=== PATIENT | female | born 1945 | race Caucasian/White ===

== ENCOUNTER 2016-12-25 10:31 | Inpatient (IN) | payer MEDICARE, BC ==
[~2016-12-25] VITALS: Ht 172.7 cm; Wt 52.2 kg
[2016-12-25] VITALS (28 sets, daily range): BP systolic 114–170; BP diastolic 56–90
--- NOTE | 2016-12-25 10:31 | NUR ---
BIB RA 102 FROM HOME,ALTERED,BLOOD SUGAR 123, THINKS SHE TOOK "A BUNCH OF TEMAZEPAM"
--- NOTE | 2016-12-25 10:45 | NUR ---
7.5 CM 20 AT THE LIP
[2016-12-25] MEDS ORDERED: IV NS 0.9% 1,000 ML BAG IV ONE (11:00)
[2016-12-25] MEDS ORDERED: SUCCINYLCHOLINE CHLORIDE 20 MG/ML VIAL IV ONE ×2 (11:00→14:56)
[2016-12-25] MEDS ORDERED: PROPOFOL 100 ML IV PRN (11:00)
--- NOTE | 2016-12-25 11:05 | NUR ---
PT TAKEN TO CT VIA ACLS PROTOCOL
[2016-12-25] MEDS ORDERED: DIVA125T3 PO (11:16)
[2016-12-25] MEDS ORDERED: AMLO5TAB2 PO (11:16)
[2016-12-25] MEDS ORDERED: SERT100T PO (11:16)
[2016-12-25] MEDS ORDERED: OMEP20TA68 PO (11:16)
[2016-12-25] MEDS ORDERED: LOSA50TA21 PO (11:16)
[2016-12-25] MEDS ORDERED: TRAZ-147 PO (11:16)
[2016-12-25] MEDS ORDERED: RIZA10TA27 PO (11:16)
[2016-12-25] MEDS ORDERED: LENA20CA PO (11:16)
[2016-12-25] MEDS ORDERED: HYDR-548 PO (11:16)
[2016-12-25] MEDS ORDERED: ACYC400T PO (11:16)
[2016-12-25] MEDS ORDERED: ONDA8TAB6 PO (11:16)
[2016-12-25] MEDS ORDERED: ASPI81TA2 PO (11:16)
[2016-12-25] MEDS ORDERED: LAMO100T PO (11:16)
[2016-12-25] MEDS ORDERED: TEMA30CA PO (11:16)
--- NOTE | 2016-12-25 11:16 | NUR ---
EGG BREAKER AT BEDSIDE
--- NOTE | 2016-12-25 11:24 | NUR ---
RT PT INTUBATED 7.5 ETT TUBE 20CM AT LIP. PER MD ORDER SETTINGS PRESCRIBED AC 14 500 +5 50% ALARMS ARE ON AND AUDIBLE. VENT PLUGGED INTO RED OUTLET. AMBU BAG AT BEDSIDE. NO DISTRESS NOTED WILL CONTINUE TO MONITOR Addendum: 12/25/16 at 1127 by JOEY DILLON RT Amended: Links added.
[2016-12-25 11:38] LABS: CALCIUM, SERUM 9.6 mg/dL (8.5-10.1); CARBON DIOXIDE 29 mmol/L (21-32); CHLORIDE 104 mmol/L (98-107); CREATININE 0.6 mg/dL (0.6-1.3); GLUCOSE 131 mg/dL (74-106); POTASSIUM 3.6 mmol/L (3.5-5.1); SODIUM SERUM 141 mmol/L (136-145); UREA NITROGEN, BLOOD 19 mg/dL (7-18)
--- NOTE | 2016-12-25 11:39 | NUR ---
AC 14 TV 500 FIO2 50 % PEEP 5
[2016-12-25 11:43] LABS: BASOPHILS % (AUTO) 0.3 % (0.0-2.0); EOSINOPHILS # (AUTO) 0.1 /CMM (0.0-0.7); EOSINOPHILS % (AUTO) 0.7 % (0.0-6.0); HEMATOCRIT 39 % (33-45); HEMOGLOBIN 12.6 g/dL (11.5-14.8); LYMPHOCYTES # (AUTO) 0.8 /CMM (0.8-4.8); LYMPHOCYTES % (AUTO) 10.6 % (20.0-44.0); MEAN CORPUSCULAR HEMOGLOBIN 28 PG (26.0-33.0); MEAN CORPUSCULAR HGB CONC 33 g/dl (31.0-36.0); MEAN CORPUSCULAR VOLUME 86 fL (82-100); MONOCYTES # (AUTO) 0.5 /CMM (0.1-1.30); MONOCYTES % (AUTO) 7.1 % (2.0-12.0); NEUTROPHILS # (AUTO) 5.8 /CMM (1.8-8.9); NEUTROPHILS % (AUTO) 81.3 % (43.0-81.0); PLATELET COUNT (AUTO) 225 /CMM (150-450); RDW COEFFICIENT OF VARIATION 17.3 (11.5-15.0); RED BLOOD CELL COUNT(AUTO) 4.48 MIL/uL (4.0-5.2); WHITE BLOOD COUNT (AUTO) 7.2 K/uL (4.3-11.0)
[2016-12-25 11:44] LABS: ACETAMINOPHEN 0 ug/ml (10-30); ALANINE AMINOTRANSFERASE 15 U/L (12-78); ALBUMIN 3.5 g/dL (3.4-5.0); ALCOHOL, BLOOD < 3 mg/dL (0-0); ALKALINE PHOSPHATASE 46 U/L (46-116); ASPARTATE AMINOTRANSFERASE 9 U/L (15-37); BILIRUBIN,DIRECT 0.1 mg/dL (0.0-0.2); BILIRUBIN,TOTAL 0.5 mg/dL (0.2-1.0); SALICYLATE 0.9 mg/dL (2.8-20.0); TOTAL PROTEIN, SERUM 7.1 g/dL (6.4-8.2)
[2016-12-25 11:46] LABS: TROPONIN I < 0.017 ng/mL (0.00-0.056)
[2016-12-25 11:47] LABS: INR 0.95 (0.87-1.13); PROTHROMBIN TIME 9.9 SECS (9.5-12.7)
[2016-12-25 12:17] LABS: ABG BASE EXCESS -0.1 mmol/L; ABG OXYGEN SATURATION 98.7 % (92.0-98.5); ABG PCO2 36.8 mmHg (35.0-45.0); ABG PH 7.431 (7.350-7.450); ABG PO2 210.2 mmHg (75.0-100.0); AaDO2 104.9 mmHg; COHb 0.6 % (0.5-1.5); MetHb 0.3 % (0.0-1.5); O2Hb 97.8 % (94.0-97.0); PEEP,BG 5 cm H2O; SITE, ABG Left Brachial; VT, ABG 500 mL
--- NOTE | 2016-12-25 12:22 | NUR ---
GAVE REPORT TO [facility] ICU ROOM 253 DR GAONA ADMITTING BENZO OD DX. TRANSFER VIA ACLS PROTOCOL
[2016-12-25 12:35] LABS: APPEARANCE,URINE Clear (CLEAR); BILIRUBIN,URINE SMALL (NEGATIVE); BLOOD, URINE Trace-intact Ery/uL (NEGATIVE); COLOR,URINE Yellow (YELLOW); KETONES,URINE 80 (NEGATIVE); LEUKOCYTE ESTERASE ,URINE Negative (NEGATIVE); NITRITE, URINE Negative (NEGATIVE); PROTEIN,URINE 30 mg/dl (NEGATIVE); UGLUCOSE Negative (NEGATIVE); UROBILINOGEN,URINE 0.2 EU/dL (0.2)
[2016-12-25 12:40] LABS: BACTERIA,URINE Few /HPF (None Seen); SQUAMOUS EPITHELIAL CELL,UR Few /HPF (None Seen)
[2016-12-25] MEDS ORDERED: ONDANSETRON HCL/PF 4 MG/2 ML VIAL IVP PRN (13:00)
[2016-12-25] MEDS ORDERED: ALBUTEROL FS 2.5 MG/3 ML VIAL.NEB NEB PRN (13:00)
[2016-12-25] MEDS ORDERED: NORMAL SALINE FLUSH 10 ML SYR IV PRN (13:00)
[2016-12-25] MEDS ORDERED: NORMAL SALINE FLUSH 10 ML SYR IV SCH (13:00)
[2016-12-25] MEDS ORDERED: ACETAMINOPHEN 325 MG TABLET PO PRN (13:00)
--- NOTE | 2016-12-25 13:00 | NUR ---
RN INITIAL NOTES RECEIVED PT FORM ER VIA NAWAF. PT INTUBATED. ON [facility] VENT WITH FF SETTINGS:AC14, TV500, EN4702%, PEEP+5. NO RESPIRATORY DISTRESS NOTED. NO SOB NOTED. NO SIGNS OF PAIN NOTED. PT SEDATED. ON PROPOFOL AT 10MCG/KG/MIN. OG IN PLACE. PLACEMENT VERIFIED BY [address] RNS[address] IV LINES IN PLACE. FC IN PLACE. NO HEMATURIA NOTED. DR. GAONA AWARE OF ADMISSION. AWAITING FOR ADMISSION ORDERS. PT CONNECTED TO MONITOR. JAMEL () AT BEDSIDE. WILL CONTINUE TO MONITOR.
[2016-12-25] MEDS: ACYCLOVIR 200 MG CAPSULE PO SCH ×2 (14:27→16:32)
[2016-12-25] MEDS ORDERED: Z GUARD REMEDY 2 OZ OINT TP PRN (15:00)
--- NOTE | 2016-12-25 15:00 | NUR ---
RN NOTES SEEN AND EXAMINED BY DR. GAONA. AWARE OF LAB VALUES AND IMAGING STUDIES. ADMISSION ORDERS MADE. MD SPOKE WITH JAMEL () OVER THE PHONE AND DISCUSSED PLAN OF CARE. WILL CONTINUE TO MONITOR
[2016-12-25] MEDS: PROPOFOL 100 ML IV PRN ×2 (15:49→18:20)
--- NOTE | 2016-12-25 17:15 | NUR ---
PATIENT RECEIVED FROM ER ORALLY INTUBATED WITH 7.5 ETT SECURED AT 20 CM MID LIP LINE ON PB 840 VENT. SUCTIONED AND LAVAGED SMALL AMOUNT OF THICK RAM/BLOODY SECRETIONS. BILATERAL BS NOTED. ALARMS VERIFIED AND AUDIBLE. VENT PLUGGED INTO RED OUTLET. AMBU BAG AT [facility].
--- NOTE | 2016-12-25 18:45 | NUR ---
RN CLOSING NOTES PT REMAINS INTUBATED, ON VENT. NO RESPIRATORY DISTRESS NOTED. PT SEDATED. ON DIPRIVAN, TITRATED ACCORDINGLY. NO SIGNS OF PAIN NOTED. HOB ELEVATED IV LINES IN PLACE. FC IN PLACE. KEPT COMFORTABLE. REPOSITIONED Q2. BLE ELEVATED. WILL ENDORSE FOR CONTINUITY OF CARE.
--- NOTE | 2016-12-25 19:25 | NUR ---
RN INITIAL NOTES RECEIVED THE PATIENT SEDATED ON BED, ON DIPRIVAN @ 40MCG/LG/MIN. INTUBATED AND ON VENT, SETTINGS AC 14, TV 500, 40% FIO2, PEEP5, ETT 7.5/20@LIP, SATURATING WELL, NO S/S OF RESP DISTRESS. CURRENTLY SB/SR ON THE MONITOR, HR 50-60'S. OGT IS CLAMPED. GALVAN CATH INTACT. LEFT FOREARM 20G AND RIGHT HAND 18G BOTH FLUSHED AND PATENT, NO S/S OF INFILTRATION/INFECTION, DRESSINGS CDI. BED LOW AND LOCKED, SIDERAILS UP. WILL MONITOR
--- NOTE | 2016-12-25 21:37 | NUR ---
PT RECEIVED ORALLY INTUBATED WITH 7.5 ETT AT 20CM AT THE LIP. NOTIFIED RN AND CHARGE ABOUT THE PLACEMENT OF ETT (6.8 ABOVE THE SAEED). EQUAL BREATH SOUNDS. O2 SAT 100%. PT GETTING VOLUMES. NO RESP DISTRESS NOTED. WILL CONTINUE TO MONITOR. Addendum: 12/25/16 at 2141 by DESIRAE THOMAS RT Amended: Links added.
--- NOTE | 2016-12-25 22:14 | NUR ---
PER DR. LOPEZ ETT NEEDS TO BE ADJUSTED. ETT ADVANCED TO 22CM FROM 20CM. RN NOTIFIED.
--- NOTE | 2016-12-25 22:16 | NUR ---
RN NOTES CALLED DR LOPEZ TO INFORM HIM THAT ETT IS 6.8CM ABOVE THE SAEED. PER MD, ADVANCE ETT BY 2CM. ETT IS ADVANCED FROM 20CM TO 22CM. CONFIRMED VIA CHEST XR.
[2016-12-26] VITALS (28 sets, daily range): BP systolic 108–185; BP diastolic 51–95
[2016-12-26] MEDS: PROPOFOL 100 ML IV PRN ×2 (00:16→05:16)
--- NOTE | 2016-12-26 04:05 | NUR ---
RN NOTES REPORT GIVEN TO MANHOLE STRIPPER KIMBER FOR PATIENT'S RICKY
[2016-12-26 04:27] LABS: BASOPHILS % (AUTO) 0.5 % (0.0-2.0); EOSINOPHILS # (AUTO) 0.2 /CMM (0.0-0.7); EOSINOPHILS % (AUTO) 2.3 % (0.0-6.0); HEMATOCRIT 32 % (33-45); HEMOGLOBIN 10.4 g/dL (11.5-14.8); LYMPHOCYTES % (AUTO) 14.2 % (20.0-44.0); MEAN CORPUSCULAR HEMOGLOBIN 28 PG (26.0-33.0); MEAN CORPUSCULAR HGB CONC 33 g/dl (31.0-36.0); MEAN CORPUSCULAR VOLUME 85 fL (82-100); MONOCYTES % (AUTO) 14.2 % (2.0-12.0); NEUTROPHILS # (AUTO) 5.1 /CMM (1.8-8.9); NEUTROPHILS % (AUTO) 68.8 % (43.0-81.0); PLATELET COUNT (AUTO) 191 /CMM (150-450); RDW COEFFICIENT OF VARIATION 17.5 (11.5-15.0); RED BLOOD CELL COUNT(AUTO) 3.71 MIL/uL (4.0-5.2); WHITE BLOOD COUNT (AUTO) 7.4 K/uL (4.3-11.0)
[2016-12-26 04:49] LABS: ALANINE AMINOTRANSFERASE 16 U/L (12-78); ALBUMIN 2.7 g/dL (3.4-5.0); ALKALINE PHOSPHATASE 35 U/L (46-116); ASPARTATE AMINOTRANSFERASE 8 U/L (15-37); BILIRUBIN,TOTAL 0.6 mg/dL (0.2-1.0); CALCIUM, SERUM 8.6 mg/dL (8.5-10.1); CARBON DIOXIDE 29 mmol/L (21-32); CHLORIDE 107 mmol/L (98-107); CREATININE 0.3 mg/dL (0.6-1.3); GLUCOSE 89 mg/dL (74-106); MAGNESIUM 1.9 mg/dL (1.8-2.4); PHOSPHORUS 3.3 mg/dL (2.5-4.9); SODIUM SERUM 142 mmol/L (136-145); TOTAL PROTEIN, SERUM 5.6 g/dL (6.4-8.2); UREA NITROGEN, BLOOD 17 mg/dL (7-18)
[2016-12-26 04:58] LABS: POTASSIUM 2.8 mmol/L (3.5-5.1)
--- NOTE | 2016-12-26 07:10 | NUR ---
RN INITIAL NOTES RECEIVED PT INTUBATED, ON VENT. NO RESPIRATORY DISTRESS NOTED. NO SOB NOTED. NO SIGNS OF PAIN NOTED. PT SEDATED, ON DIPRIVAN AT 50MCG/KG/MIN. OG IN PLACE. PT NPO. IV LINES IN PLACE. FC IN PLACE. BLE ELEVATED. PT COMFORTABLE. WILL MONITOR.
[2016-12-26] MEDS ORDERED: DC PROPOFOL WHEN EXTUBATED XX PRN (08:00)
--- NOTE | 2016-12-26 08:24 | NUR ---
WOUND CARE CONSULT: PT PRESENTS WITH IMMOBILITY AND INCONTINENCE OF STOOL. PT ON FIRST STEP MATTRESS. ALL SKIN PROTECTION MEASURES IN PLACE AND DISCUSSED WITH NURSING STAFF. PT CURRENTLY INTUBATED. WILL SEE PRN. PT TO BE TURNED AND REPOSITIONED EVERY 2 HRS PT CONDITION PERMITS, HEELS FLOATED. IN AGREEMENT WITH PLAN OF CARE. Addendum: 12/26/16 at 0826 by GIANLUCA ROONEY WNDNU Amended: Links added.
[2016-12-26] MEDS: PANTOPRAZOLE 40 MG VIAL IV SCH (08:27)
[2016-12-26] MEDS: LamoTRIgine 100 MG TABLET PO SCH (08:27)
[2016-12-26] MEDS: ACYCLOVIR 200 MG CAPSULE PO SCH ×2 (08:27→16:23)
[2016-12-26] MEDS: ASPIRIN 81 MG TAB.CHEW PO SCH (08:27)
[2016-12-26] MEDS ORDERED: POTASSIUM CHLORIDE 20 MEQ POWDER PACKET GT ONE ×2 (08:30→12:00)
[2016-12-26 09:22] LABS: ABG BASE EXCESS -1.4 mmol/L; ABG OXYGEN SATURATION 98.2 % (92.0-98.5); ABG PCO2 38.5 mmHg (35.0-45.0); ABG PH 7.397 (7.350-7.450); AaDO2 100.9 mmHg; COHb 0.4 % (0.5-1.5); MetHb 0.4 % (0.0-1.5); O2Hb 97.4 % (94.0-97.0); SITE, ABG Right Radial; VENT MODE, BG PS 14 40%
[2016-12-26] MEDS ORDERED: LORAZEPAM 1 MG TABLET PO PRN (09:30)
[2016-12-26] MEDS ORDERED: HYDROCODONE/APAP 5/325MG 1 EACH TABLET PO PRN (09:30)
--- NOTE | 2016-12-26 09:30 | NUR ---
PER DR BENAVIDES ORDER PATIENT EXTUBATED AND PLACED ON 2L N/C. EHSAN DICKENS AT BEDSIDE
--- NOTE | 2016-12-26 10:00 | NUR ---
RN NOTES 899 SEEN [address] EXAMINED BY DR. WRAY. PT AWAKE,AGITATED. ON SEDATION VACATION. AT BEDSIDE. PT INTUBATED, ON VENT. PLACED ON WEANING TRIALS. WILL DO ABG AFTER 10MINS. 929 ABG RESULT RELAYED TO DR. WRAY, ORDERED EXTUBATION. PT EXTUBATED. PLACED ON AT 2LPM VIA NC. HOB ELEVATED. PT REMAINS AGITATED/RESTLESS. REORIENTATION DONE. WILL KEEP PT COMFORTABLE. AT BEDSIDE. WILL CLOSELY MONITOR.
[2016-12-26] MEDS: MORPHINE SULFATE INJ 2 MG/ML DISP.SYRIN IV PRN ×3 (11:08→23:11)
[2016-12-26] MEDS: LORAZEPAM INJ 2 MG/ML VIAL IV PRN ×2 (11:41→17:45)
--- NOTE | 2016-12-26 13:00 | NUR ---
RN NOTES SEEN AND EXAMINED BY DR. GAONA. AWARE OF CURRENT LAB VALUES. POTASSIUM 2.8, REPLACED. PT EXTUBATED. ON ROOM AIR, 02 SAT 97%. HOB ELEVATED. NO SIGNS OF ANY PAIN AT THIS TIME. PT A/OX1-2 WITH PERIODS OF CONFUSION. PT HAD EPISODE OF AGITATION, KICKING, CLIMBING OUT OF BED. GIVEN ATIVAN ORDERED AND NOTED EFFECTIVE. PT FOR SWALLOW EVAL. BEDSIDE SWALLOW EVAL DONE. ABLE TO TOLERATE ICE CHIPS. TRIED APPLE SAUCE, PT SPIT IT OUT. YANCY LANDIN AWARE, WILL TRY SWALLOW EVAL IN AM. DISCUSSED PLAN OF CARE WITH AT BEDSIDE. PER MD, PT WILL BE SEEN BY OWN PSYCH TODAY. NO ADDITIONAL ORDER/S MADE.
--- NOTE | 2016-12-26 16:24 | NUR ---
RN NOTES PT GIVEN ICE CHIPS, TOLERATED WELL. TRIED APPLE SAUCE TO BE MIXED WITH ZOVIRAX. PT SPAT OUT THE APPLE SAUCE. PT AGITATED, KICKING STAFF. UNABLE TO GIVE ZOVIRAX. MD AWARE. WILL CONTINUE TO MONITOR.
--- NOTE | 2016-12-26 18:54 | NUR ---
RN CLOSING NOTES PT AWAKE AND CALM. ON ROOM AIR. NO [id number] DISTRESS NOTED. NO SIGNS OF PAIN NOTED. HOB ELEVATED. IV LINE IN PLACE. UNABLE TO START 2ND IV LINE DUE TO PT'S AGITATION EARLIER. OFFERED TO REINSERT, PT AND REFUSED. PER , TRY TO INSERT IV LINE IN AM. REQUEST RESPECTED. FC IN PLACE. KEPT CLEAN AND DRY. KEPT COMFORTABLE. ALL NEEDS ATTENDED AND MET. WILL ENDORSE FOR CONTINUITY OF CARE.
--- NOTE | 2016-12-26 20:43 | NUR ---
received pt from day shift, s/p extubation, lethargic, follows simple commands, SR, RA sat well, NPO, swallow evaluation pending, f/c OK output, 1:1 sitter at the bedside, v/s stable, no pain, pt turned and repositioned.
[2016-12-27] VITALS (18 sets, daily range): BP systolic 128–205; BP diastolic 64–137
--- NOTE | 2016-12-27 00:27 | NUR ---
pt is restless, anxious, combative at times, kicking, trying to get out of bed, sitter 1:1 at the bedside, v/s stable, no pain, pt turned and repositioned q2hrs.
[2016-12-27] MEDS: LORAZEPAM INJ 2 MG/ML VIAL IV PRN (04:38)
--- NOTE | 2016-12-27 04:50 | NUR ---
pt is resting in the bed, no acute distress overnight, Ativan given for agitation, sitter at the bedside, v/s stable, no pain, pt cleaned, changed and repositioned q2hrs.
[2016-12-27 04:57] LABS: FERRITIN 82 ng/mL (8-388)
[2016-12-27 05:01] LABS: IRON, SERUM 26 ug/dl (50-175); TOTAL IRON BINDING CAPACITY 327 ug/dl (250-450)
--- NOTE | 2016-12-27 08:00 | NUR ---
PT AWAKE, COOPERATIVE, AOx3. VSS. IS AT BEDSIDE. PT STATES SHE IS HUNGRY AND THIRSTY. PT IS NPO AT THIS TIME, ICE CHIPS PROVIDED FOR ORAL GRATIFICATION. NO IVF ORDERED, K2.9, DR GAONA NOTIFIED. SPEECH EVAL CONTACTED VIA VOICEMAIL, THAT PT AWAITING FOR EVAL. Addendum: 12/27/16 at 1511 by LISA ADORNO RN SACRAL REDNESS COMPLETELY RESOLVED COMPARED TO ADMIT PICTURE. PT NOTED TO HAVE RIGHT MIDDLE SECOND AND THIRD FLANGES MISSING DUE TO THE ACCIDENT IN 1940. PT REFUSED PICTURE.
[2016-12-27 08:24] LABS: BASOPHILS # (AUTO) 0.1 /CMM (0.0-0.2); BASOPHILS % (AUTO) 0.9 % (0.0-2.0); EOSINOPHILS # (AUTO) 0.2 /CMM (0.0-0.7); EOSINOPHILS % (AUTO) 2.1 % (0.0-6.0); HEMATOCRIT 34 % (33-45); HEMOGLOBIN 10.9 g/dL (11.5-14.8); LYMPHOCYTES # (AUTO) 2.1 /CMM (0.8-4.8); LYMPHOCYTES % (AUTO) 21.2 % (20.0-44.0); MEAN CORPUSCULAR HEMOGLOBIN 28 PG (26.0-33.0); MEAN CORPUSCULAR HGB CONC 32 g/dl (31.0-36.0); MEAN CORPUSCULAR VOLUME 86 fL (82-100); MONOCYTES # (AUTO) 1.2 /CMM (0.1-1.30); MONOCYTES % (AUTO) 12.4 % (2.0-12.0); NEUTROPHILS # (AUTO) 6.2 /CMM (1.8-8.9); NEUTROPHILS % (AUTO) 63.4 % (43.0-81.0); PLATELET COUNT (AUTO) 187 /CMM (150-450); RDW COEFFICIENT OF VARIATION 17.8 (11.5-15.0); RED BLOOD CELL COUNT(AUTO) 3.92 MIL/uL (4.0-5.2); WHITE BLOOD COUNT (AUTO) 9.8 K/uL (4.3-11.0)
[2016-12-27 08:39] LABS: CALCIUM, SERUM 8.4 mg/dL (8.5-10.1); CARBON DIOXIDE 25 mmol/L (21-32); CHLORIDE 107 mmol/L (98-107); CREATININE 0.4 mg/dL (0.6-1.3); GLUCOSE 76 mg/dL (74-106); POTASSIUM 2.9 mmol/L (3.5-5.1); SODIUM SERUM 143 mmol/L (136-145); UREA NITROGEN, BLOOD 14 mg/dL (7-18)
[2016-12-27] MEDS: LamoTRIgine 100 MG TABLET PO SCH (08:42)
[2016-12-27] MEDS: PANTOPRAZOLE 40 MG VIAL IV SCH (08:42)
[2016-12-27] MEDS: ASPIRIN 81 MG TAB.CHEW PO SCH (08:42)
[2016-12-27] MEDS: ACYCLOVIR 200 MG CAPSULE PO SCH ×2 (08:43→17:03)
[2016-12-27 08:47] LABS: MAGNESIUM 1.7 mg/dL (1.8-2.4)
[2016-12-27] MEDS: MORPHINE SULFATE INJ 2 MG/ML DISP.SYRIN IV PRN (08:53)
[2016-12-27] MEDS ORDERED: Potassium Chloride 20 MEQ in IV D5/ 0.9% NACL 1,000 ML IV SCH (11:00)
--- NOTE | 2016-12-27 11:00 | NUR ---
IVF ORDERED, D5W WITH 20 OF K AT 75ML/H PHARMACY NOTIFIED.
[2016-12-27] MEDS: Potassium Chloride 20 MEQ in IV D5W 1,000 ML IV SCH (11:24)
--- NOTE | 2016-12-27 11:30 | NUR ---
PT COMPLAINS OF HEADACHE AND STATES THAT THE ONLY MEDICATION HELPING HER IS MAXALT, BUT PHARMACY DOES NOT HAVE IT. PT'S NOTIFIED TO PROVIDE THIS MED. ICE COMPRESS PROVIDED AND PT STATED ICE PACK PROVIDED RELIEF.
--- NOTE | 2016-12-27 12:30 | NUR ---
DR. GAONA IS HERE TO SEE PT. UPDATED ON PROGRESS.
[2016-12-27] MEDS: Magnesium 1GM/D5W 100ML PREMIX 100 ML IV SCH ×2 (13:00→14:08)
--- NOTE | 2016-12-27 13:01 | NUR ---
DR COUGHLIN UPDATED ON PT REASON FOR VISIT AND PROGRESS. ORDER FOR CRISIS TEAM ABDIFATAH. LASHAY REED NOTIFIED. MESSAGE SENT TO TEXT. 1976
--- NOTE | 2016-12-27 13:33 | NUR ---
LASHAY REED CALLED BACK. SHE WILL NOTIFY KAMERON, WHO IS CONSTRUCTION SECRETARY FOR PSYCH. INTAKE.
--- NOTE | 2016-12-27 13:34 | NUR ---
PT ASSISTED WITH LUNCH, INTAKE 90%. PT ASSISTED WITH HYGIENE, ONE SOFT BM.
--- NOTE | 2016-12-27 14:00 | NUR ---
PT AMBULATED WITH PT. VSS. DENIES PAIN. SAT 95% ON RA NO SOB. NOTIFIED PT MATILDA; BE TRASFERED BY WHEELCHAIR TO [id number], WITH SITTER AT BEDSIDE. Addendum: 12/27/16 at 1458 by LISA ADORNO RN F/C D/C ORDERED, PT ABLE TO URINATE IN BEDPAN. 200ML
--- NOTE | 2016-12-27 14:56 | NUR ---
PT TRANSFERRED TO [facility] 112-2, SITTER AT BEDSIDE, REPORT TO SABA.
--- NOTE | 2016-12-27 15:00 | NUR ---
RN ADMITTING NOTES: REC'D PT FROM [facility] SUPERVISOR. PT TRANSFERRED VIA WHEELCHAIR TO ROOM 112/2, ELIZABETH STATUS. PT IS A/O X3, NOT IN ANY DISTRESS, DENIES ANY PAIN/DISCOMFORT, DOES NOT VERBALIZE ANY SUICIDAL ATTEMPTS. PT ON ROOM AIR, NO SOB. PT PLACED ON TELEMONITOR, SR W/ HR [address], NOTED LEAKING ON THE SITE, W/ D5W + 20 MEQS KCL X 75 CC/HR. NOTED SACRAL REDNESS AND SKIN TEAR/ BRUISES ON BILATERAL EXTREMITIES. PT ORIENTED TO ROOM. PROVIDED COMFORT & SAFETY MEASURES. CALL LIGHT PLACED W/IN REACH. AT BEDSIDE. AWAITING FOR PSYCH MD AND CRISIS TEAM FOR EVALUATION. WILL CONTINUE TO MONITOR AND ATTEND PT NEEDS.
[2016-12-27] MEDS: SOD FERRIC GLUC 125 MG in IV NS 0.9% 100 ML IV SCH (15:23)
[2016-12-27] MEDS ORDERED: Magnesium 1GM/D5W 100ML PREMIX 100 ML IV SCH (16:00)
--- NOTE | 2016-12-27 19:00 | NUR ---
RN CLOSING NOTES: NO ACUTE CHANGES NOTED W/IN SHIFT. PT TOLERATED ROOM AIR, NO SOB. ON TELEMONITOR, STILL SR. CHANGED IV LINE TO RFA G20 PL, PATENT & INTACT, W/ D5W + 20 MEQS KCL X 75 CC/HR INFUSING WELL. WOUND CARE DONE. KEPT WELL RESTED. CALL LIGHT PLACED W/IN REACH. UPDATED ABOUT PT'S CONDITION VIA PHONE CALL. STILL AWAITING FOR PSYCH MD AND CRISIS TEAM FOR EVALUATION. NO SUICIDAL IDEATION NOTED. HAS 1:1 SITTER AT BEDSIDE. ATTENDED PT'S NEEDS. ENDORSED TO PM RN FOR RICKY.
--- NOTE | 2016-12-27 20:18 | NUR ---
received pt from day shift, alert, follows commands, RA, sat well, lungs hyperexpanded, SR, tolerates diet, uses bedpan, sitter at the bedside, v/s stable, no pain, pt turned and repositioned.
[2016-12-28] VITALS: BP 145/76
--- NOTE | 2016-12-28 07:30 | NUR ---
CHIEF OF INTERNAL MEDICINE RECEIVED PATIENT AWAKE SITTING ON BED ON ROOM AIR SHE LOOKS CALM AND ALERT ORIENTED X 3 ON IV POTASSIUM CHLORIDE DRIP ABLE TO CONSUME HER SHARE OF MEAL WITH GOOD APPETITE PATIENT WANTED TO GO HOME STILL WAITING FOR PSYCH DOCTOR TO EVALUATE HER TO BE DISCHARGED
[2016-12-28 08:00] VITALS: BP 158/86
[2016-12-28] MEDS: ACYCLOVIR 200 MG CAPSULE PO SCH (09:01)
[2016-12-28] MEDS: Potassium Chloride 20 MEQ in IV D5W 1,000 ML IV SCH (09:01)
[2016-12-28] MEDS: ASPIRIN 81 MG TAB.CHEW PO SCH (09:02)
[2016-12-28] MEDS: LamoTRIgine 100 MG TABLET PO SCH (09:02)
[2016-12-28] MEDS: PANTOPRAZOLE 40 MG VIAL IV SCH (09:02)
--- NOTE | 2016-12-28 10:00 | NUR ---
OXYGEN FURNACE OPERATOR PATIENT COMPLAINTS OF BM X3 SOFT, PASTY, BROWN STOOL IN MODERATE AMOUNT
[2016-12-28 10:35] LABS: CALCIUM, SERUM 8.7 mg/dL (8.5-10.1); CARBON DIOXIDE 26 mmol/L (21-32); CHLORIDE 103 mmol/L (98-107); CREATININE 0.4 mg/dL (0.6-1.3); GLUCOSE 138 mg/dL (74-106); PHOSPHORUS 2.8 mg/dL (2.5-4.9); POTASSIUM 3.5 mmol/L (3.5-5.1); SODIUM SERUM 138 mmol/L (136-145); UREA NITROGEN, BLOOD 4 mg/dL (7-18)
--- NOTE | 2016-12-28 11:03 | NUR ---
ELIZABETH RN, left message to waiting for returning call back
--- NOTE | 2016-12-28 11:04 | NUR ---
ELIZABETH RN, # is [phone]
[2016-12-28 11:31] LABS: BASOPHILS # (AUTO) 0.1 /CMM (0.0-0.2); BASOPHILS % (AUTO) 0.9 % (0.0-2.0); EOSINOPHILS # (AUTO) 0.3 /CMM (0.0-0.7); HEMATOCRIT 40 % (33-45); HEMOGLOBIN 12.6 g/dL (11.5-14.8); LYMPHOCYTES % (AUTO) 8.5 % (20.0-44.0); MEAN CORPUSCULAR HEMOGLOBIN 27 PG (26.0-33.0); MEAN CORPUSCULAR HGB CONC 32 g/dl (31.0-36.0); MEAN CORPUSCULAR VOLUME 87 fL (82-100); MONOCYTES % (AUTO) 8.9 % (2.0-12.0); NEUTROPHILS % (AUTO) 78.7 % (43.0-81.0); PLATELET COUNT (AUTO) 161 /CMM (150-450); RDW COEFFICIENT OF VARIATION 17.5 (11.5-15.0); RED BLOOD CELL COUNT(AUTO) 4.63 MIL/uL (4.0-5.2); WHITE BLOOD COUNT (AUTO) 11.4 K/uL (4.3-11.0)
--- NOTE | 2016-12-28 11:39 | NUR ---
MEMS PROCESS ENGINEER BLOOD SUGAR FOR 0600 DONE BY GINA MOSERCHARGE ATTENDANTCABIN OUTFITTER Addendum: 12/28/16 at 1151 by SPENCER WALKER RN WRONG ENTRY
--- NOTE | 2016-12-28 11:53 | NUR ---
JACQUARD PLATE MAKER CALLED [facility] TO CHECK WHO [facility] PSYCH DOCTOR HAND SALTER, DR. ERWIN LEFT AND WILL SEE PATIENT NAHID PATIENT WANTED TO GO HOME, WILL TRY TO CALL ANOTHER DOCTOR FOR PSYCH EVALUATION
[2016-12-28 12:00] VITALS: BP 143/77
[2016-12-28] MEDS: SOD FERRIC GLUC 125 MG in IV NS 0.9% 100 ML IV SCH (13:48)
--- NOTE | 2016-12-28 14:57 | NUR ---
RN ELIZABETH PATIENT WANTED TO GO HOME AND DOES NOT WANT TO WAIT FOR PSYCH DOCTOR DR. GAONA INFORMED FOR AMA PATIENT SIGNED AMA
--- NOTE | 2016-12-28 15:22 | NUR ---
RN ELIZABETH REMOVED IV R FOREARM PATIENT CHANGED TO HER OWN CLOTHES AWAITING AND DAUGHTER TO TAKE PATIENT NO UNTOWARD SYMPTOM SEEN TO THE PATIENT AT THIS TIME STABLE TO WALK AROUND WITH ASSIST ENDORSED
== END 2016-12-28 15:50 | disposition left against medical advice (07) | DRG 917 ==
LOC: ER 10:34 → ICU 12:12 → TELE-TD 12-27 14:11
PROVIDERS: ADMIT Internal Medicine; ATTEND Internal Medicine
PROC: 5A1935Z Respiratory Ventilation, Less than 24 Consecutive Hours (ICD-10-PCS; principal; 2016-12-25)
PROC: 0BH17EZ Insertion of Endotracheal Airway into Trachea, Via Natural or Artificial Opening (ICD-10-PCS; 2016-12-25)
DX: T42.4X1A Poisoning by benzodiazepines, accidental (unintentional), initial encounter (principal); G92 Toxic encephalopathy; J96.01 Acute respiratory failure with hypoxia; G62.9 Polyneuropathy, unspecified; C90.01 Multiple myeloma in remission; F32.9 Major depressive disorder, single episode, unspecified; K21.9 Gastro-esophageal reflux disease without esophagitis; E87.6 Hypokalemia; F41.9 Anxiety disorder, unspecified; G89.4 Chronic pain syndrome; M81.0 Age-related osteoporosis without current pathological fracture; Z96.659 Presence of unspecified artificial knee joint; Z79.52 Long term (current) use of systemic steroids; M19.90 Unspecified osteoarthritis, unspecified site; T40.2X1A Poisoning by other opioids, accidental (unintentional), initial encounter; Y92.009 Unspecified place in unspecified non-institutional (private) residence as the place of occurrence of the external cause; K58.9 Irritable bowel syndrome, unspecified; Z79.899 Other long term (current) drug therapy; D50.9 Iron deficiency anemia, unspecified; Z96.649 Presence of unspecified artificial hip joint
CPT/HCPCS: 31720; 36415; 36600; 70450-TC; 71010-TC; 80048-TC; 80053-TC; 80076-TC; 80305; 81000-TC; 82272-TC; 82728-TC; 82746; 82803-TC; 83540-TC; 83735-TC; 84100-TC; 84484-TC; 85025-TC; 85730-TC; 87081-TC; 92526; 92611-TC; 94002-TC; 94003-TC; 94762-TC; 94799-TC; 97116-TC; 97530-TC; 99082-TC; A4216; A4606; A6402; A6403; C9113; G0480; J0330; J2060; J2270; J2916; J3475; J3480; J3490; J7030; J7042; J7070; Z7610